=== PATIENT | female | born 1930 | race Caucasian/White ===

== ENCOUNTER 2016-10-30 18:04 | Emergency (ER) | payer MEDICARE, BC, OTHER ==
--- NOTE | ~2016-10-30 | CR181 ---
[facility] A Service of [facility] & [facility] RADIOLOGY TEXT RESULTS PATIENT: LUPIS RICCI LOCATION: [facility] : 29 UNIT #: [id number] AGE: [address]: Hemal Mayo MD SEX: F ORDER DR: [id number] [facility] [address] [place], [place] [address] [id number] E MR#: [id number] Acc #: [id number] NAME: LUPIS RICCI : 1930 SEX: F STUDY DATE/TIME: 10/30/2016 16:44 UNIT: [facility] ROOM: STUDY DESCRIPTION: CR Lumbar Spine 2 or 3 Views Attending Physician: Hemal Mayo M.D. Ordering Physician: Ed Doctor [id number] [facility] Primary Care Physician: Lia Whitman M.D. MEDICAL IMAGING REPORT This report is preliminary unless electronic signature is present EXAM Lumbar spine radiographs INDICATION Low back pain for 2 days status post fall. FINDINGS 3 views of the lumbar spine without comparison. The bone density is fairly osteopenic. There is no acute fracture or subluxation. There is some degenerative disc changes throughout the lumbar spine consistent with disc space narrowing and osteophyte formation. The sacroiliac joints within normal limits. IMPRESSION Degenerative changes lumbar spine. No acute findings. Dictated by... Edwin Finn M.D. THIS IS AN ELECTRONICALLY VERIFIED REPORT Edwin Finn M.D. at 10/30/2016 10:06 PM YAMILE/karina TD: 10/30/2016 20:56 JOB #: [id number] MEDICAL IMAGING REPORT Page 1 of 1 COPY
--- NOTE | ~2016-10-30 | CT71 ---
[facility] A Service [facility] RADIOLOGY TEXT RESULTS PATIENT: LUPIS RICCI LOCATION: [facility] : 29 UNIT #: [id number] AGE: [address]: Hemal Mayo MD SEX: F ORDER DR: [id number] [facility] [address] [place], [place] [address] [id number] E MR#: [id number] Acc #: [id number] NAME: LUPIS RICCI : 1930 SEX: F STUDY DATE/TIME: 10/30/2016 16:57 UNIT: [facility] ROOM: STUDY DESCRIPTION: CT Head Wo Contrast Attending Physician: Hemal Mayo M.D. Ordering Physician: Gavin Samuel M.D. Primary Care Physician: Lia Whitman M.D. MEDICAL IMAGING REPORT This report is preliminary unless electronic signature is present EXAM CT head, 10/30/2016 INDICATION Fell out of a wheelchair. Back, head and neck pain. TECHNIQUE CT head without contrast. This CT exam was performed with one or more of the following radiation dose reduction techniques: automatic exposure control, adjustment of mA and/or kV according to patient size, and iterative reconstruction. COMPARISON MRI of the brain dated 07/26/2007. FINDINGS There is no acute intracranial hemorrhage, mass lesion, or acute infarct. There is severe global cerebral atrophy and chronic small vessel changes. The ventricles are slightly dilated, however this is felt to be commiserate with the degree volume loss. 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 No extraaxial collections. Extensive vascular calcifications are noted in the intracranial internal carotid arteries. No acute osseous abnormalities. Visualized paranasal sinuses and mastoid air cells are clear. IMPRESSION 1. No acute intracranial findings. 2. Atrophy and chronic small vessel changes. [facility] A Service [facility] RADIOLOGY TEXT RESULTS PATIENT: LUPIS RICCI LOCATION: [facility] : 29 UNIT #: [id number] AGE: [address]: Hemal Mayo MD SEX: F ORDER DR: Dictated by... Edwin Finn M.D. THIS IS AN ELECTRONICALLY VERIFIED REPORT Edwin Finn M.D. at 10/30/2016 10:06 PM YAMILE/jhonny TD: 10/30/2016 20:54 JOB #: [id number] MEDICAL IMAGING REPORT Page 1 of 1 COPY
--- NOTE | ~2016-10-30 | CT52 ---
[facility] A Service of [facility] & [facility] RADIOLOGY TEXT RESULTS PATIENT: LUPIS RICCI LOCATION: [facility] : 29 UNIT #: [id number] AGE: [address]: Hemal Mayo MD SEX: F ORDER DR: [id number] [facility] [address] [place], [place] [address] [id number] E MR#: [id number] Acc #: [id number] NAME: LUPIS RICCI : 1930 SEX: F STUDY DATE/TIME: 10/30/2016 17:07 UNIT: [facility] ROOM: STUDY DESCRIPTION: CT Cervical Spine Wo Cont Attending Physician: Hemal Mayo M.D. Ordering Physician: Gavin Samuel M.D. Primary Care Physician: Lia Whitman M.D. MEDICAL IMAGING REPORT This report is preliminary unless electronic signature is present EXAM CT cervical spine without contrast, 10/30/2016 HISTORY Neck pain after fall today. TECHNIQUE This CT exam was performed with one or more of the following radiation dose reduction techniques: automatic exposure control, adjustment of mA and/or kV according to patient size, and iterative reconstruction. FINDINGS CT cervical spine without contrast demonstrates moderately severe degenerative disc space narrowing at C5-6. There is mild disc space narrowing at C4-5. Severe degenerative changes at the anterior junction of C1-2. Moderate degenerative facet arthropathy at multiple levels, greater from C2-C3 to C3-4 on the left. There is 2 mm anterior subluxation of C3 on C4. No fracture. No bony destruction. Mild bilateral bony outlet foraminal narrowing at C5-6 and mild left-sided bony outlet foraminal narrowing at C3-4. No precervical soft tissue swelling. IMPRESSION 1. Ocee-xb-yfhgygzb multilevel degenerative and hypertrophic changes including disc space narrowing predominately at C5-6 and to a lesser degree at C4-5. 2. Minimal anterior subluxation of C3 on C4. 3. Degenerative facet arthropathy at multiple levels, greater at C2-3 and C3-4 on the left. Dictated by... Terrence Landaverde M.D. [facility] A Service of [facility] & [facility] RADIOLOGY TEXT RESULTS PATIENT: LUPIS RICCI LOCATION: [facility] : 29 UNIT #: [id number] AGE: [address]: Hemal Mayo MD SEX: F ORDER DR: THIS IS AN ELECTRONICALLY VERIFIED REPORT Terrence Landaverde M.D. at 10/30/2016 10:36 PM LAURA/jhonny TD: 10/30/2016 21:18 JOB #: [id number] MEDICAL IMAGING REPORT Page 1 of 1 COPY
--- NOTE | ~2016-10-30 | CR243 ---
[facility] A Service of [facility] & [facility] RADIOLOGY TEXT RESULTS PATIENT: LUPIS RICCI LOCATION: [facility] : 29 UNIT #: [id number] AGE: [address]: Hemal Mayo MD SEX: F ORDER DR: [id number] [facility] [address] [place], [place] [address] [id number] E MR#: [id number] Acc #: [id number] NAME: LUPIS RICCI : 1930 SEX: F STUDY DATE/TIME: 10/30/2016 16:42 UNIT: [facility] ROOM: STUDY DESCRIPTION: CR Thoracic Spine 3 Views Attending Physician: Hemal Mayo M.D. Ordering Physician: Ed Doctor [id number] [facility] Primary Care Physician: Lia Whitman M.D. MEDICAL IMAGING REPORT This report is preliminary unless electronic signature is present EXAM Thoracic spine radiographs INDICATION Mid thoracic spine pain status post fall 2 days ago. FINDINGS 3 views of the thoracic spine compared to two-view chest dated 04/04/2016. There is no acute fracture or subluxation. Vertebral body height and alignment is within normal limits. IMPRESSION No acute findings. Dictated by... Edwin Finn M.D. THIS IS AN ELECTRONICALLY VERIFIED REPORT Edwin Finn M.D. at 10/30/2016 10:06 PM YAMILE/karina TD: 10/30/2016 20:54 JOB #: [id number] MEDICAL IMAGING REPORT Page 1 of 1 COPY
[~2016-10-30 18:04] MED LIST: ACETAMINOPHEN325 MG PO; ADVAIR 5001 DISK W/D PO; ASPIRIN ENTERI325 M1 PO; AZITHROMYCIN500 MG PO; BAYER CHEWABLE81 MG PO; BENZONATATE PO; CECLOR PO; CHANTIX PO; CLARITIN10 M3 PO; COLACE PO; COMBIVENT U/D3 M2; COMBIVENT U/D3 M2 INH; CRESTOR PO; CYANOCOBAL1000 MCG/1 INJ; CYANOCOBAL1000 MCG/M INJ; DEPAKOTE125 MG PO; DIAZEPAM PO; DIVALPROEX SOD125 M1 PO; DOCUSATE SODIU100 MG PO; DRISDOL8000 U/ML PO; DUONEB 2.5-0.5 M3 ML NEB; ESCITALOPRAM OXA5 MG PO; FERRO-TIME325 MG PO; FLUCONAZOLE100 M1 PO; FOLIC ACID1 MG PO; GAVISCON EXTRA355 ML PO; IMDUR PO; IMDUR-ER30 M1 PO; IPRAT-ALBUT 0.5-3 ML INH; LACTULOSE10 G/15 M1 PO; LASIX PO; LEVAQUIN PO; LEXAPRO5 MG PO; LIPITOR PO; LIPITOR40 MG PO; LOPRESSOR PO; MEDROL PO; METHYLPREDNISOLO4 M1 PO; METOPROLOL TART25 MG PO; MIRTAZAPINE7.5 MG PO; MUCINEX DM ER1 EACH PO; NICODERM C1 PATCH .1 TD; NITROGLYGERIN0.4 MG SL; NORVASC PO; NORVASC2.5 MG PO; NYSTATIN5 ML; ONDANSETRON HCL4 MG PO; PANTOPRAZOLE SO40 MG PO; PERCOCET 5/321 UDTAB PO; PLAVIX PO; PREDNISONE PO; PREDNISONE10 MG PO; PROTONIX PO; ROBAFEN DM COU118 ML PO; SENEXON-S TABL1 EACH PO; SOF-LAX100 MG PO; TOPROL XL PO; TYLENOL EXTRA500 M1 PO; VASOTEC PO; ZITHROMAX PO; ZOFRAN ODT4 MG PO; ZOFRANODT PO; [UNRECOGNIZED DRUG - OTHER]
== END 2016-10-30 20:14 | disposition home or self-care (01) ==
LOC: CED 18:04
DX: M54.5 Low back pain (principal); M54.6 Pain in thoracic spine; G89.29 Other chronic pain; I10 Essential (primary) hypertension; J44.9 Chronic obstructive pulmonary disease, unspecified; D64.9 Anemia, unspecified; F03.90 Unspecified dementia, unspecified severity, without behavioral disturbance, psychotic disturbance, mood disturbance, and anxiety; Z95.1 Presence of aortocoronary bypass graft; Z87.891 Personal history of nicotine dependence; I25.10 Atherosclerotic heart disease of native coronary artery without angina pectoris; Z79.899 Other long term (current) drug therapy; Z79.82 Long term (current) use of aspirin
CPT/HCPCS: 70450; 72072; 72100; 72125; 99284

== ENCOUNTER 2016-12-10 19:56 | Emergency (ER) | payer MEDICARE, BC, OTHER ==
--- NOTE | ~2016-12-10 | CT71 ---
[facility] A Service [facility] RADIOLOGY TEXT RESULTS PATIENT: LUPIS RICCI LOCATION: [facility] : 29 UNIT #: [id number] AGE: [address]: Maicol Johnson MD SEX: F ORDER DR: [id number] [facility] [address] [place], [place] [address] [id number] E MR#: [id number] Acc #: [id number] NAME: LUPIS RICCI : 1930 SEX: F STUDY DATE/TIME: 12/10/2016 20:51 UNIT: [facility] ROOM: STUDY DESCRIPTION: CT Head Wo Contrast Attending Physician: Brant Johnson M.D. Ordering Physician: Gavin Samuel M.D. Primary Care Physician: Rome Hernandez M.D. MEDICAL IMAGING REPORT This report is preliminary unless electronic signature is present EXAM CT brain without contrast. HISTORY Fell yesterday. Headache, nausea, vomiting today. TECHNIQUE CT brain without contrast. This CT exam was performed with one or more of the following radiation dose reduction techniques: Automatic exposure control, adjustment of mA and/or kV according to patient size, and iterative reconstruction. COMPARISON 10/30/2016. FINDINGS There are bilateral subdural chronic hematomas/hygromas, slightly greater density than CSF, new compared to the prior CT on 10/30/2016, measuring 1.3 cm in thickness over the anterolateral frontal lobes bilaterally. These cause underlying sulcal effacement, and extend to the anterior frontal lobes bilaterally. No acute intracranial hemorrhage. Moderate to moderately extensive chronic ischemic changes in the deep white matter bilaterally. Moderate generalized cerebral and cerebellar cortical atrophy. No midline shift. IMPRESSION 1. Bilateral chronic subdural hematomas/hygromas over the frontal lobes bilaterally measuring up to 1.3 cm in thickness over the anterolateral frontal lobes. These are new findings compared to 10/30/2016 CT. These result in sulcal effacement of the underlying anterior and lateral frontal lobes bilaterally and extend to the anterior frontal lobes bilaterally. [facility] A Service [facility] RADIOLOGY TEXT RESULTS PATIENT: LUPIS RICCI LOCATION: [facility] : 29 UNIT #: [id number] AGE: [address]: Maicol Johnson MD SEX: F ORDER DR: 2. No acute intracranial hemorrhage. 3. Moderate extensive chronic ischemic changes in the deep white matter bilaterally. Dictated by... Terrence Landaverde M.D. THIS IS AN ELECTRONICALLY VERIFIED REPORT Terrence Landaverde M.D. at 12/11/2016 12:59 PM DFTim/michelle TD: 12/11/2016 09:10 JOB #: [id number] MEDICAL IMAGING REPORT Page 1 of 1 COPY
[2016-12-10] MEDS ORDERED: PROTONIX40 M1 GT (20:04)
[2016-12-10] MEDS ORDERED: BAYER CHEWABLE81 MG GT (20:04)
[2016-12-10] MEDS ORDERED: ESCITALOPRAM OXA5 MG GT (20:05)
[2016-12-10] MEDS ORDERED: FOLIC ACID1 MG GT (20:05)
[2016-12-10] MEDS ORDERED: ROBINUL1 M1 GT (20:06)
[2016-12-10] MEDS ORDERED: MED PLUS 2.0 GT (20:06)
[2016-12-10] MEDS ORDERED: METOPROLOL TART25 MG GT (20:07)
[2016-12-10] MEDS ORDERED: LIPITOR40 MG GT (20:07)
[2016-12-10] MEDS ORDERED: ALBUTEROL17 GM INH (20:08)
[2016-12-10] MEDS ORDERED: PERCOCET5/325 GT (20:08)
[2016-12-10] MEDS ORDERED: MELATONIN3 M3 GT (20:09)
[2016-12-10 22:50] LABS: BASOPHIL% 0.3 % (0-2.5); EOSINOPHIL# 0.1 X10e3 (0-0.7); EOSINOPHIL% 0.8 % (0.0-7.0); HEMATOCRIT 42.7 % (35.0-45.0); HEMOGLOBIN 13.3 gm/dL (12.0-16.0); LYMPHOCYTE# 1.4 X10e3 (1.0-3.5); LYMPHOCYTE% 13.1 % (17.0-45.0); MEAN CELL VOLUME 88.4 FL (83-96); MEAN CORPUSCULAR HEMOGLOBIN 27.6 PG (28-34); MEAN CORPUSCULAR HGB CONC 31.2 g/dL (30-36); MEAN PLATELET VOLUME 9.7 FL (6.5-11.5); MONOCYTE# 1.4 X10e3 (0-1.0); MONOCYTE% 12.3 % (3.0-12.0); NEUTROPHIL# 8.1 X10e3 (1.5-7.1); NEUTROPHIL% 73.5 % (40-75); PLATELET COUNT 152 X10e3 (140-420); RED BLOOD COUNT 4.83 X10e (3.90-5.30); RED CELL DISTRIBUTION WIDTH 15.9 % (11.0-15.5)
[2016-12-10 22:51] LABS: DIFF IND NO
[2016-12-10 22:58] LABS: INR 1.2; PARTIAL THROMBOPLASTIN TIME 26.1 SECONDS (23.5-31.3); PROTHROMBIN TIME (PATIENT) 12.4 SECONDS (9.6-11.5)
[2016-12-10 23:08] LABS: ALBUMIN SERUM 3.6 g/dL (3.5-5.0); BILIRUBIN,TOTAL 0.7 mg/dL (0.2-2.0); BUN/CREATININE RATIO 15.55; CALCIUM SERUM 8.7 mg/dL (8.4-10.2); CREATININE SERUM 0.9 mg/dL (0.6-1.4); GLOM FILT RATE Estimated 57.5 mL/min (>60); POTASSIUM 3.9 mmol/L (3.5-5.1); PROTEIN TOTAL SERUM 6.1 g/dL (6.0-8.3)
== END 2016-12-10 23:28 | disposition short-term general hospital (02) ==
LOC: CED 19:56 → CFTX 21:03 → CED 23:28
PROVIDERS: Emergency Medicine
DX: S06.5X0A Traumatic subdural hemorrhage without loss of consciousness, initial encounter (principal); I10 Essential (primary) hypertension; F03.90 Unspecified dementia, unspecified severity, without behavioral disturbance, psychotic disturbance, mood disturbance, and anxiety; K21.9 Gastro-esophageal reflux disease without esophagitis; Z66 Do not resuscitate; Z79.82 Long term (current) use of aspirin; Z79.899 Other long term (current) drug therapy; W18.39XA Other fall on same level, initial encounter; Y92.129 Unspecified place in nursing home as the place of occurrence of the external cause
CPT/HCPCS: 70450; 80053; 85025; 85610; 85730; 99285

== ENCOUNTER 2017-02-02 15:28 | Emergency (ER) | payer MEDICARE, BC, OTHER ==
--- NOTE | ~2017-02-02 | CR150 ---
[facility] A Service of [facility] & [facility] RADIOLOGY TEXT RESULTS PATIENT: LUPSI RICCI LOCATION: [facility] : 29 UNIT #: [id number] AGE: [address]: Emre Guzman MD SEX: F ORDER DR: [id number] [facility] [address] [place], [place] [address] [id number] E MR#: [id number] Acc #: [id number] NAME: LUPIS RICCI : 1930 SEX: F STUDY DATE/TIME: 02/02/2017 15:59 UNIT: [facility] ROOM: STUDY DESCRIPTION: CR Hip Min 2 Views Lt Attending Physician: Emre Guzman M.D. Ordering Physician: Emre Guzman M.D. Primary Care Physician: Rome Hernandez M.D. MEDICAL IMAGING REPORT This report is preliminary unless electronic signature is present EXAM Left hip HISTORY Patient fell today with left hip pain COMPARISON 10/09/2015 TECHNIQUE 2 views of the left hip were obtained. FINDINGS Postoperative changes are seen at both hips. No hardware complications are noted. No acute fractures are seen. Atherosclerotic calcification is noted in the blood vessels across the groin. The acetabulum is intact. IMPRESSION Satisfactory postoperative alignment and position. No evidence of fracture or hardware complication. Dictated by... Emre Mendosa M.D. THIS IS AN ELECTRONICALLY VERIFIED REPORT Emre Mendosa M.D. at 02/03/2017 11:22 AM CONNER/nguyen TD: 02/02/2017 22:00 JOB #: [id number] MEDICAL IMAGING REPORT Page 1 of 1 COPY
--- NOTE | ~2017-02-02 | CT71 ---
[facility] A Service of [facility] RADIOLOGY TEXT RESULTS PATIENT: LUPIS RICCI LOCATION: [facility] : 29 UNIT #: [id number] AGE: [address]: Emre Guzman MD SEX: F ORDER DR: [id number] [facility] [address] [place], [place] [address] [id number] E MR#: [id number] Acc #: [id number] NAME: LUPIS RICCI : 1930 SEX: F STUDY DATE/TIME: 02/02/2017 16:17 UNIT: [facility] ROOM: STUDY DESCRIPTION: CT Head Wo Contrast Attending Physician: Emre Guzman M.D. Ordering Physician: Emre Guzman M.D. Primary Care Physician: Rome Hernandez M.D. MEDICAL IMAGING REPORT This report is preliminary unless electronic signature is present EXAM Head CT, no contrast, 02/02/2017. PROCEDURE Axial unenhanced head CT. This CT exam was performed with one or more of the following radiation dose reduction techniques: automatic exposure control, adjustment of mA and/or kV according to patient size, and iterative reconstruction. COMPARISON 12/10/2016 CLINICAL HISTORY Head pain after fall today. History of subdural hematomas. FINDINGS Redemonstrated chronic bilateral subdural hematomas with new acute component bilaterally. There is actually no midline shift and there is stable chronic small vessel ischemic change. In the right frontal region, the right side, anterior subdural collection measures up to 15 mm in maximal thickness, compared to probably 12 mm previously. The left side component measures up to 10 mm in thickness compared to up to 12 mm previously. Chronic small vessel change without evidence of acute ischemia and no parenchymal hemorrhage or hydrocephalus. The skull base and calvaria show no acute abnormality. IMPRESSION No midline shift. Persistent large bilateral chronic subdural components with new acute components indicated by increased density in both the right and left subdural collections when compared to the prior study. The [facility] A Service [facility] & [facility] RADIOLOGY TEXT RESULTS PATIENT: LUPIS RICCI LOCATION: [facility] : 29 UNIT #: [id number] AGE: [address]: Emre Guzman MD SEX: F ORDER DR: collection on the right is clearly slightly increased in maximal thickness from previously about 12 to now about 15 mm, while that on the left is probably slightly decreased from previously about 12 to now about 10 mm. Nonetheless, there is no midline shift, parenchymal hemorrhage or hydrocephalus. Dictated by... Saman Vasques M.D. THIS IS AN ELECTRONICALLY VERIFIED REPORT Saman Vasques M.D. at 02/07/2017 10:33 AM CHRIS/timothy TD: 02/03/2017 00:01 JOB #: [id number] MEDICAL IMAGING REPORT Page 1 of 1 COPY
--- NOTE | ~2017-02-02 | CT52 ---
[facility] A Service [facility] RADIOLOGY TEXT RESULTS PATIENT: LUPIS RICCI LOCATION: [facility] : 29 UNIT #: [id number] AGE: [address]: Emre Guzman MD SEX: F ORDER DR: [id number] [facility] [address] [place], [place] [address] [id number] E MR#: [id number] Acc #: [id number] NAME: LUPIS RICCI : 1930 SEX: F STUDY DATE/TIME: 02/02/2017 16:17 UNIT: [facility] ROOM: STUDY DESCRIPTION: CT Cervical Spine Wo Cont Attending Physician: Emre Guzman M.D. Ordering Physician: Emre Guzman M.D. Primary Care Physician: Rome Hernandez M.D. MEDICAL IMAGING REPORT This report is preliminary unless electronic signature is present EXAM Cervical spine CT, no contrast. DATE OF STUDY 02/02/2017 CLINICAL HISTORY Left head and neck pain. Symptoms after fall today. PROCEDURE Axial cervical spine CT without contrast with multiplanar reformats. This CT exam was performed with one or more of the following radiation dose reduction techniques: automatic exposure control, adjustment of mA and/or kV according to patient size, and iterative reconstruction. FINDINGS There is a midcervical degenerative reversal of lordosis but there is no fracture. There is no bone erosion, or destruction or other acute abnormality. Incidental note is made of atherosclerotic vascular calcifications at the cervical carotid bifurcations, but the exam is otherwise, unremarkable. IMPRESSION Degenerative changes, no acute abnormality. Dictated by... Saman Vasques M.D. THIS IS AN ELECTRONICALLY VERIFIED REPORT Saman Vasques M.D. at 02/07/2017 10:33 AM [facility] A Service [facility] RADIOLOGY TEXT RESULTS PATIENT: LUPIS RICCI LOCATION: [facility] : 29 UNIT #: [id number] AGE: [address]: Emre Guzman MD SEX: F ORDER DR: Karina TD: 02/03/2017 00:24 JOB #: [id number] MEDICAL IMAGING REPORT Page 1 of 1 COPY
--- NOTE | ~2017-02-02 | EKG ---
PATIENT: LUPIS RICCI UNIT #: [id number] Ventricular Rate: 62 BPM Atrial Rate: 62 BPM P-R Interval: 190 ms QRS Duration: 114 ms Q-T Interval: 478 ms QTC Calculation(Bezet): 485 ms P [place]: 58 degrees Calculated R [place]: -71 degrees Calculated T [place]: 60 degrees Diagnosis Line: Normal sinus rhythm Diagnosis Line: Left axis deviation Diagnosis Line: Right bundle branch block Diagnosis Line: Infrerior infarct Diagnosis Line: Nonspecific ST and T wave abnormality Diagnosis Line: Abnormal ECG Diagnosis Line: When compared with ECG of 31-MAR-2016 07:23, Diagnosis Line: No significant change was found Diagnosis Line: Confirmed by LUIS FERNANDO EDOUARD MD ([id number]) on Diagnosis Line: 02/04/2017 9:56:14 AM INTERPRETING : MARY
[~2017-02-02 15:28] MED LIST changes: +ALBUTEROL17 GM INH; +BAYER CHEWABLE81 MG GT; +ESCITALOPRAM OXA5 MG GT; +FOLIC ACID1 MG GT; +LIPITOR40 MG GT; +MED PLUS 2.0 GT; +MELATONIN3 M3 GT; +METOPROLOL TART25 MG GT; +PERCOCET5/325 GT; +PROTONIX40 M1 GT; +ROBINUL1 M1 GT
[2017-02-02 18:16] LABS: BASOPHIL% 0.3 % (0-2.5); EOSINOPHIL# 0.7 X10e3 (0-0.7); EOSINOPHIL% 10.5 % (0.0-7.0); HEMATOCRIT 42.1 % (35.0-45.0); HEMOGLOBIN 13.4 gm/dL (12.0-16.0); LYMPHOCYTE# 1.3 X10e3 (1.0-3.5); LYMPHOCYTE% 17.7 % (17.0-45.0); MEAN CELL VOLUME 87.1 FL (83-96); MEAN CORPUSCULAR HEMOGLOBIN 27.7 PG (28-34); MEAN CORPUSCULAR HGB CONC 31.8 g/dL (30-36); MEAN PLATELET VOLUME 7.5 FL (6.5-11.5); MONOCYTE# 0.7 X10e3 (0-1.0); MONOCYTE% 9.7 % (3.0-12.0); NEUTROPHIL# 4.4 X10e3 (1.5-7.1); NEUTROPHIL% 61.8 % (40-75); PLATELET COUNT 164 X10e3 (140-420); RED BLOOD COUNT 4.83 X10e (3.90-5.30); RED CELL DISTRIBUTION WIDTH 18.5 % (11.0-15.5); WHITE BLOOD COUNT 7.1 X10e3 (4.0-10.5)
[2017-02-02 18:18] LABS: DIFF IND NO
[2017-02-02 18:29] LABS: INR 1.2; PARTIAL THROMBOPLASTIN TIME 24.6 SECONDS (23.5-31.3); PROTHROMBIN TIME (PATIENT) 13.2 SECONDS (10.0-11.7)
[2017-02-02 18:44] LABS: ALBUMIN SERUM 3.7 g/dL (3.5-5.0); BILIRUBIN, DIRECT 0.1 mg/dL (0.0-0.2); BILIRUBIN,INDIRECT 0.5 mg/dL (0.0-0.9); BILIRUBIN,TOTAL 0.6 mg/dL (0.2-2.0); CALCIUM SERUM 8.8 mg/dL (8.4-10.2); GLOM FILT RATE Estimated 50.6 mL/min (>60); POTASSIUM 4.1 mmol/L (3.5-5.1); PROTEIN TOTAL SERUM 6.2 g/dL (6.0-8.3)
== END 2017-02-02 19:45 | disposition hospice, home (50) ==
LOC: CED 15:28
PROVIDERS: Emergency Medicine
DX: S06.5X9A Traumatic subdural hemorrhage with loss of consciousness of unspecified duration, initial encounter (principal); S00.03XA Contusion of scalp, initial encounter; J44.9 Chronic obstructive pulmonary disease, unspecified; I10 Essential (primary) hypertension; F03.90 Unspecified dementia, unspecified severity, without behavioral disturbance, psychotic disturbance, mood disturbance, and anxiety; X58.XXXA Exposure to other specified factors, initial encounter; Y92.9 Unspecified place or not applicable
CPT/HCPCS: 36415; 70450; 72125; 73502; 80048; 80076; 85025; 85610; 85730; 93005; 99285

== ENCOUNTER 2017-02-18 16:27 | Emergency (ER) | payer MEDICARE, BC, OTHER ==
--- NOTE | ~2017-02-18 | CT71 ---
[facility] A Service of [facility] & [facility] RADIOLOGY TEXT RESULTS PATIENT: LUPIS RICCI LOCATION: [facility] : 29 UNIT #: [id number] AGE: [address]: Denia Briggs MD SEX: F ORDER DR: [id number] [address] [address] [id number] E MR#: [id number] Acc #: [id number] NAME: LUPIS RICCI : 1930 SEX: F STUDY DATE/TIME: 02/18/2017 16:49 UNIT: [facility] ROOM: STUDY DESCRIPTION: CT Head Wo Contrast Attending Physician: Denia Briggs M.D. Ordering Physician: Denai Briggs M.D. Primary Care Physician: Rome Hernandez M.D. MEDICAL IMAGING REPORT This report is preliminary unless electronic signature is present. EXAM Noncontrast head CT HISTORY Fell 1500 hours today, hit head on floor, headache. History of Alzheimer's. Previous subdural. COMPARISON Head CT 02/02/2017. FINDINGS This CT examination was performed with one or more of the following radiation dose reduction techniques: automatic exposure control, adjustment of mA and/or kV according to patient size, and iterative reconstruction. Axial noncontrast imaging of the brain demonstrates a subdural hematoma overlying the right frontoparietal convexity measuring up to 1.3 cm in thickness and up to 6.8 cm in length. There is also an apparent chronic-appearing left frontoparietal subdural hematoma. This measures about 1.1 cm in thickness and close to 8 cm in length. There is some increased attenuation of the inferior aspect of the subdural hematoma. This measures approximately 1.7 cm. Minimal effacement of the frontal lobes bilaterally but no significant mass effect and no significant change from prior CT. Continued ventriculomegaly and chronic appearing periventricular microvascular changes. No large vessel infarct. No herniation. Basilar cisterns unremarkable. Bony calvarium, skull base and sinuses unremarkable. IMPRESSION 1. Bilateral subdural hematomas overlying the frontal and parietal regions. Both of the subdurals demonstrate areas of decreased attenuation and some areas of increased attenuation which probably STS. [facility] A Service of [facility] & [facility] RADIOLOGY TEXT RESULTS PATIENT: LUPIS RICCI LOCATION: [facility] : 29 UNIT #: [id number] AGE: [address]: Denia Briggs MD SEX: F ORDER DR: represents acute on chronic subdural hematomas though I suspect relative to the 02/02/2017 study there has been no significant change in the bilateral subdural hematomas. No significant mass effect or midline shift. 2. Generalized atrophy with ventriculomegaly and chronic periventricular white matter changes most likely reflects longstanding microvascular disease. Probable small lacunar infarcts both thalami. Dictated by... Link Faulkner M.D. THIS IS AN ELECTRONICALLY VERIFIED REPORT Link Faulkner M.D. at 02/19/2017 7:15 AM EDDIE/sukhjinder TD: 02/19/2017 05:59 JOB #: [id number] MEDICAL IMAGING REPORT Page 1 of 1
[2017-02-18 18:17] LABS: BASOPHIL# 0.1 X10e3 (0-0.3); EOSINOPHIL# 0.4 X10e3 (0-0.7); EOSINOPHIL% 6.7 % (0.0-7.0); HEMATOCRIT 41.4 % (35.0-45.0); HEMOGLOBIN 13.5 gm/dL (12.0-16.0); LYMPHOCYTE# 1.1 X10e3 (1.0-3.5); LYMPHOCYTE% 18.6 % (17.0-45.0); MEAN CELL VOLUME 87.3 FL (83-96); MEAN CORPUSCULAR HEMOGLOBIN 28.5 PG (28-34); MEAN CORPUSCULAR HGB CONC 32.7 g/dL (30-36); MEAN PLATELET VOLUME 7.8 FL (6.5-11.5); MONOCYTE# 0.5 X10e3 (0-1.0); MONOCYTE% 8.7 % (3.0-12.0); NEUTROPHIL# 3.9 X10e3 (1.5-7.1); PLATELET COUNT 173 X10e3 (140-420); RED BLOOD COUNT 4.74 X10e (3.90-5.30); RED CELL DISTRIBUTION WIDTH 17.3 % (11.0-15.5)
[2017-02-18 18:18] LABS: DIFF IND NO
[2017-02-18 18:26] LABS: INR 1.3; PROTHROMBIN TIME (PATIENT) 15.1 SECONDS (9.5-12.4)
[2017-02-18 18:33] LABS: GLOM FILT RATE Estimated 50.6 mL/min (>60); POTASSIUM 4.8 mmol/L (3.5-5.1)
[2017-02-18 18:34] LABS: PARTIAL THROMBOPLASTIN TIME 26.5 SECONDS (25.6-38.1)
== END 2017-02-18 18:49 | disposition hospice, home (50) ==
LOC: SED 16:27
PROVIDERS: Student in an Organized Health Care Education/Training Program
DX: S06.5X9A Traumatic subdural hemorrhage with loss of consciousness of unspecified duration, initial encounter (principal); W19.XXXA Unspecified fall, initial encounter; Z79.82 Long term (current) use of aspirin; Z79.899 Other long term (current) drug therapy
CPT/HCPCS: 36415; 70450; 80048; 85025; 85610; 85730; 99291